=== PATIENT | male | born 1940 | race Caucasian/White ===

== ENCOUNTER 2023-09-21 13:24 | Inpatient (IN) | payer MEDICARE, MEDICAID, SELFPAY ==
[2023-09-21] VITALS (12 sets, daily range): BP systolic 96–128; BP diastolic 57–75; PULSE 59–70; RESP 12–20; TEMP 36.2–36.7; O2SAT 96–100; BMI 21.7
--- NOTE | ~2023-09-21 | CT_ITS ---
EXAMINATION: CT brain wo con DATE: 09/21/2023 15:14 INDICATION: Altered mental status. TECHNIQUE: Computed tomography (CT) of the head was performed without intravenous contrast. The mA wa s adjusted according to patient size. Iterative reconstruction technique was employed. The dose-lengt h product was 681.00 mGy-cm. COMPARISON: None FINDINGS: There is an old infarct in right frontal lobe. There is no intracranial hemorrhage, acute i nfarction, or abnormal intracranial mass lesion. There are scattered areas of low attenuation in the cerebral white matter. The ventricles are normal in size. There is mild mucosal thickening in the eth moid sinuses. There are changes of right mastoidectomy. There are likely changes of ocular lens repla cement surgeries. IMPRESSION: 1. 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 2. Extensive nonspecific cerebral white matter disease, which likely represents chronic small vessel ischemic disease. Reviewed, dictated and finalized at location A.
--- NOTE | ~2023-09-21 | CT_ITS ---
EXAMINATION:CT diagnostic chest w con DATE: 09/21/2023 17:23 INDICATION: Abnormal chest radiographs. TECHNIQUE: Computed tomography (CT) of the chest was performed with 75 mL Omnipaque 350 intravenous c ontrast. Automated exposure control and iterative reconstruction technique were employed. The dose-le ngth product (DLP) was 268.86 mGy-cm. COMPARISON: Chest 2 views 09/21/2023 FINDINGS: There is mild emphysema. There are airspace opacities and tree-in-bud opacities and centril obular nodules in right lower lobe, consistent with pneumonia. There is mild atelectasis bilaterally. There is mild right hilar lymphadenopathy, likely reactive. A calcified left lung nodule and calcifi ed left hilar lymph nodes are consistent with old granulomatous disease. There is a 2.1 cm cavitary n odule in left upper lobe. There is mucous plugging in right lower lobe. No pleural effusion. The hear t size is normal. There are coronary artery calcifications. There is a small sliding hiatal hernia. T here is severe cervical spondylosis and moderate thoracic spondylosis. There are bridging endplate os teophytes at multiple levels in the spine, consistent with diffuse idiopathic skeletal hyperostosis ( DISH). IMPRESSION: 1. Right lower lobe pneumonia. 2. 2.1 cm cavitary nodule in left lung upper lobe suspicious for primary bronchogenic carcinoma. Nonc ontrast low-dose chest CT is recommended in 1-3 months. 3. Mild emphysema. Reviewed, dictated and finalized at location A. IMPRESSION: 1. Right lower lobe pneumonia. 2. 2.1 cm cavitary nodule in left lung upper lobe suspicious for primary bronch ogenic carcinoma. Noncontrast low-dose chest CT is recommended in 1-3 months. 3. Mild emphysema.
--- NOTE | ~2023-09-21 | XR_ITS ---
Clinical Indication: Weakness PA and lateral views of the chest: Comparison: None Findings: There is mild bibasilar haziness/interstitial prominence.. Cardiomediastinal silhouette is within normal limits. Bones and soft tissues are unremarkable. Impression: Mild bibasilar haziness/interstitial prominence. Correlate for COPD/chronic interstitial change or po ssibly atypical infection or minimal pulmonary edema. Reviewed, dictated and finalized at location . Impression: Mild bibasilar haziness/interstitial prominence. Correlate for COPD/chronic int erstitial change or possibly atypical infection or minimal pulmonary edema.
--- NOTE | 2023-09-21 13:33 | ECG_ITS ---
[facility] [address] Test Date: 2023-09-21 Pat Name: Bruce Gonzalez Department: Room: Gender: M Veterans Contact Representative: KENDALL : 1940 Requested By: Ileana Orellana Order Number: [id number] Reading MD: Adolfo Barajas D.O. Measurements Intervals [place] Rate: 66 P: -55 [place]: 194 QRS: 57 QRSD: 94 T: 69 QT: 390 QTc: 409 Interpretive Statements SINUS RHYTHM NONSPECIFIC ST & T-WAVE ABNORMALITY- DIFFUSE LEADS BASELINE ARTIFACT- II, III, AVR, AVL, AVF, V1-V6 BORDERLINE ECG No previous ECG available for comparison Electronically Signed On 09-22-2023 08:53:14 CDT by Adolfo Barajas D.O.
[2023-09-21 13:47] LABS: Basophils Absolute Auto 0.1 K/mm3 (0.0-0.1); Basophils Percent Auto 0.9 % (0.2-1.2); Eosinophils Absolute Auto 0.1 K/mm3 (0-0.3); Eosinophils Percent Auto 1.2 % (0-4.4); Hematocrit 37.4 % (42.0-52.0); Hemoglobin 12.3 g/dL (14.0-18.0); Immature Granulocyte Absolute 0.01 K/mm3 (0.00-0.031); Immature Granulocyte Percent A 0.1 % (0-0.5); Lymphocytes Absolute Auto 1.69 K/mm3 (0.9-3.2); Lymphocytes Percent Auto 22.4 % (18.3-44.2); Mean Corpuscular HGB Conc 32.9 g/dl (32-36); Mean Corpuscular Hemoglobin 29.3 pg (26-34); Mean Platelet Volume 9.5 fl (7.4-10.4); Monocytes Absolute Auto 0.5 K/mm3 (0.1-0.6); Monocytes Percent Auto 6.8 % (2.6-8.5); Neutrophils Absolute Auto 5.2 K/mm3 (1.3-6.7); Neutrophils Percent Auto 68.6 % (45.5-73.1); Platelet Count Result 302 k/mm3 (150-375); White Blood Count 7.5 K/mm3 (4.5-10.0)
[2023-09-21 14:02] LABS: Alanine Aminotransferase 11 U/L (6-50); Albumin Level 4.1 g/dL (3.5-5.1); Alkaline Phosphatase 55 U/L (38-126); Anion Gap 10 mmol/L (4-12); Aspartate Amino Transferase 17 U/L (17-59); Bilirubin,Total 0.7 mg/dL (0.2-1.3); Blood Urea Nitrogen 19 mg/dL (9-20); Calcium 9.1 mg/dL (8.4-10.2); Carbon Dioxide 30 mmol/L (22-30); Chloride 103 mmol/L (98-107); Estimated CRCL calculation 63 ml/min; Estimated Glomerular Filt Rate > 60; Glucose 92 mg/dL (65-110); Potassium 3.4 mmol/L (3.4-5.0); Sodium 143 mmol/L (137-145)
--- NOTE | 2023-09-21 14:21 | ED.WEAKNESS ---
HPI - Weakness General Chief complaint: Weakness Stated complaint: lethargic Time Seen by Provider: 09/21/23 13:43 Source: family, EMS and RN notes reviewed Mode of arrival: EMS Limitations: altered mental status and dementia History of Present Illness HPI Narrative: Patient is an 83-year-old with dementia who presents with report of being more lethargic today. It is reported that at baseline he is alert and oriented x1 or 2. He had 2 episodes of staring off and drooling, being pale and diaphoretic. the 1st 8:30 a.m. and again at 11:30 a.m. Patient had his face in his meatloaf per report given to RN. daughter has noted that he has been progressively more sleepy. She states he has bilateral swelling of his hands on Tuesday but that this resolved. Per documentation, patient has a history of atrial fibrillation for which he is on Eliquis 5 mg b.i.d.. Also on quetiapine. Daughter states he gets Haldol at noon daily though is unsure if he got today's dose; unclear from senior care documentation. Patient to be placed in senior care due to behavioral outbursts associated with patient's dementia. Related Data Allergies Allergy/AdvReac Type Severity Reaction Status Date / Time No Known Allergies Allergy Verified 09/21/23 14:59 PMFSH Past Medical History Medical History Altered mental status, unspecified Alzheimer's disease, unspecified Anxiety disorder, unspecified Atelectasis Cerebral atherosclerosis Chronic atrial fibrillation, unspecified Dysphagia, unspecified Essential (primary) hypertension Hallucinations, unspecified Hypothyroidism Muscle weakness (generalized) Nutritional deficiency, unspecified Type 2 diabetes mellitus without complication Unspecified dementia, moderate, with agitation Vitamin D deficiency Social History Social History Social History: Code status No CPR, comfort-focused treatment per documentation from [place] (signed 07/18/23) Living arrangements: senior care Additional living arrangements comments: [facility] since 06/08/23 after hospitalization at [facility] 05/27/23-06/08/23 Occupation/Education: retired Additional occupation/education comments: Worked on the [employer] Exam Narrative: GENERAL: well-nourished, and in no acute distress. HEAD: Normocephalic, atraumatic. EYES: Non injected, non icteric ENT: Nares clear, no rhinorrhea or epistaxis. Dentures in place. NECK: Supple. CHEST: No respiratory distress. Non labored breathing. HEART: Regular rate and rhythm. Protecting airway. ABDOMEN: Soft, nondistended. No tenderness to palpation. Abdomen is without rigidity or guarding, not peritoneal EXTREMITIES: Normal range of motion. No bilateral lower extremity edema. Legs are shiny and hairless. SKIN: Warm, dry, no rash. NEURO: Lethargic, somnolent. PSYCH: Does not appear in distress or pain (no furrowed brow, no grimace) Course Vital Signs Vital signs: Vital Signs Temperature 97.1 F L 09/21/23 13:23 Pulse Rate 68 09/21/23 13:23 Respiratory Rate 17 09/21/23 13:23 Blood Pressure 116/62 09/21/23 13:23 Pulse Oximetry 98 09/21/23 13:23 Oxygen Delivery Room Air 09/21/23 13:23 Temperature 98.0 F 09/21/23 18:15 Pulse Rate 66 09/21/23 19:00 Respiratory Rate 12 09/21/23 19:00 Blood Pressure 122/73 09/21/23 19:00 Pulse Oximetry 100 09/21/23 19:00 Oxygen Delivery Room Air 09/21/23 13:23 MDM - Weakness MDM Narrative Medical decision making narrative: Patient is a 83yo male with dementia complicated by behavioral outbursts who is reported to be alert oriented x1 or 2 at baseline. Is reported that patient has been or some and lethargic with 2 episodes today of staring off and being diaphoretic and pale. In the emergency department they are afebrile with vital signs within normal limi
[2023-09-21 14:47] LABS: Appearance Urine Clear (Clear); Bacteria Urine None Seen /hpf; Bilirubin Urine Negative (Negative); Blood Urine Negative (Negative); Color Urine Dark Yellow (Yellow); Glucose Urine UA Negative (Negative); Ketones Urine Trace mg/dL (Negative); Leukocyte Esterase Ur Negative LEU/UL (Negative); Need Manual Microscopic Reviewed; Nitrate Urine Negative (Negative); Non Pathogenic Casts 0-2; Protein Urine Trace mg/dL (Negative); RBC Urine 0-2 /hpf (0-2); Specific Grav Ur 1.031 (1.001-1.035); Squamous Epithelial Cell Urine None Seen /hpf (Few); WBC Urine 0-5 /hpf (0-3); pH Urine 5.5 (5.0-9.0)
[2023-09-21 14:48] LABS: Add Urine Microscopic? YES; Calcium Oxalate Crystals Urine Present /hpf
[2023-09-21] MEDS: SODIUM CHLORIDE 0.9% IV 1,000 ML 999 ML IV CONT (14:49)
[2023-09-21 15:20] LABS: Acetaminophen < 10 ug/mL (10-30); Ethanol < 10 mg/dL (<10); Lactic Acid Reflex 1.9 mmol/L (0.7-2.0); Salicylate < 1.0 mg/dL (2-20)
[2023-09-21 15:33] LABS: Troponin I < 0.012 ng/mL (0.000-0.034)
[2023-09-21 15:33] LABS: Amphetamine Screen Urine Negative (Negative); Barbiturate Screen Urine Negative (Negative); Benzodiazepines Screen Urine Negative (Negative); Cannabinoid Screen Urine Negative (Negative); Cocaine Screen Urine Negative (Negative); Methadone Screen Urine Negative (Negative); Opiate Screen Urine Negative (Negative); Phencyclidine Screen Urine Negative (Negative)
[2023-09-21 15:57] LABS: Creatine Kinase 86 U/L (55-170)
[2023-09-21 16:07] LABS: NT Pro B Type Natriuretic Pept 246 pg/mL (19.9-100)
[2023-09-21 16:21] LABS: Alveolar/Arterial O2 Gradient 34.6 mmHg; Fractional Inspired Oxygen 21 %; Oxygen Content ABG 16.5 %vol (16.0-22.0); Oxygen Saturation ABG 94.7 % (95.0-100.0); Oxyhemoglobin 94.5 % THb (90.0-100.0); PCO2 ABG 37.6 mmHg (35.0-45.0); PO2 ABG 70.1 mmHg (80.0-100.0); PO2 FiO2 Ratio Arterial Blood 3.34 %; Total Hemoglobin 12.4 g/dL (12.0-18.0); pH ABG 7.441 (7.350-7.450)
[2023-09-21 16:22] LABS: Device ROOM AIR; Modified Allen's Test Pass; Site Drawn RIGHT RADIAL
[2023-09-21 16:27] LABS: Free T4 Free Thyroxine 1.22 ng/mL (0.78-2.19)
--- NOTE | 2023-09-21 17:14 | PC.NURSE ---
Pt to CT scan via stretcher at this time.
[2023-09-21 18:25] LABS: Influenza A QL RT-PCR Negative (Negative); Influenza B QL RT-PCR Negative (Negative); RSV RNA, RT-PCR Negative (Negative); SARS-CoV-2 RNA PCR Negative (Negative)
[2023-09-21] MEDS: DOXYCYCLINE 100 MG/NS 100 ML 100 MG/100 ML BAG IVPB (18:38)
--- NOTE | 2023-09-21 23:41 | PM.IMHP ---
H&P: HPI History of Present Illness Date/Time: 09/21/23 19:15 Chief Complaint: Lethargy. Narrative: This is an 83-year-old gentleman with Alzheimer's dementia with history of behavioral disturbances, hypertension, type 2 diabetes mellitus, hypothyroidism, paroxysmal atrial fibrillation, history of deep venous thrombosis and pulmonary embolism, and chronic anticoagulation who presented to the emergency department via EMS from [facility] for evaluation of lethargy. The patient has never been seen at this facility and he is unable to provide any meaningful history. His daughter Rosa is at bedside and provides the following history. The patient was diagnosed with dementia several years ago and he lived with Rosa up until May when she began having difficulties caring for him due to behavioral disturbances. Since he has been admitted to the [facility] he has gone downhill quickly and it sounds as though he is sedated a majority of the time. He is no longer holding good conversation and does not feet or toilet himself. His weight continues to fall. Today Rosa received a phone call that he was being sent to the ED as he was lethargic at lunch and had 2 episodes where he ?was staring off and drooling.? She has not been told of any recent illnesses or sick contacts. In the ED: He was afebrile on arrival with stable vital signs. CMP and CBC were reviewed and pretty unremarkable. TSH was 15.200 there was free T4 was normal at 1.22. Urinalysis was unremarkable. Urine drug screen was negative. Salicylate, acetaminophen, and ethyl alcohol levels were undetectable. He tested negative for influenza, RSV, and COVID. 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 Chest CT showed a 2.1 cm cavitary nodule in the left upper lobe suspicious for primary bronchogenic carcinoma, mild emphysema, and right lower lobe pneumonia. He was started on ceftriaxone and doxycycline and is being admitted in this setting. Review of Systems Review of Systems: Unable to obtain given clinical condition. [facility] Past Medical History Medical History (Updated 09/21/23 @ 23:47 by Daksha Ramos PA-C) Alzheimer's disease, unspecified Anxiety disorder, unspecified Cerebral atherosclerosis Chronic anticoagulation Dementia with behavioral disturbance Dysphagia, unspecified Essential (primary) hypertension Hallucinations, unspecified Hypothyroidism Muscle weakness (generalized) Nutritional deficiency, unspecified Paroxysmal atrial fibrillation Type 2 diabetes mellitus without complication Vitamin D deficiency Surgical History Surgical History (Updated 09/21/23 @ 23:47 by Daksha Ramos PA-C) Surgical history unknown Family History Family History (Updated 09/21/23 @ 23:48 by Daksha Ramos PA-C) Other Family history unknown Social History Social History (Updated 09/21/23 @ 23:48 by Daksha Ramos PA-C) Social History: Healthcare power of business attorney: Elis Garnett, daughter. Code status: No CPR, comfort-focused treatment per documentation from [place] (signed 07/18/23). Smoking status: Former smoker Alcohol intake: former Substance use: never Living arrangements: fdc Additional living arrangements comments: . [facility] since 06/08/23 after hospitalization at [facility]. Occupation/Education: retired Additional occupation/education comments: Worked on the [email or web address]. Spiritual care concerns: No Meds Home Medications and Allergies Home Medications Medication Instructions Recorded Confirmed Type amlodipine 10 mg tablet 10 mg PO DAILY 09/21/23 09/21/23 History apixaban 5 mg tablet (Eliquis) 5 mg PO DAILY 09/21/23 09/21/23 History aspirin 81 mg tablet 81 mg PO DAILY 09/21/23 09/21/23 History cholecalciferol (vitamin D3) 1,250 50,000 unit PO WEEKLY 09/21/23 09/21/23 History mcg (50,000 unit) capsule levothyroxine 125
[2023-09-22 06:00] VITALS: BP 140/70; PULSE 56; RESP 18; TEMP 36.6; O2SAT 97
[2023-09-22] MEDS: LEVOTHYROXINE SODIUM 125 MCG TABLET PO (06:23)
--- NOTE | 2023-09-22 06:58 | PM.IMPN ---
Progress Note: A&P Assessment and Plan (1) Right lower lobe pneumonia: Qualifiers: Pneumonia type: due to unspecified organism Qualified Code(s): J18.9 - Pneumonia, unspecified organism Code(s): J18.9 - Pneumonia, unspecified organism Status: Acute Assessment and Plan: Chest CT showing right lower lobe pneumonia, 2.1 cm cavitary nodule in left lung upper lobe suspicious for primary bronchogenic carcinoma, and mild emphysema. White count 7.5, afebrile Receiving Rocephin and doxycycline Urine Legionella, pneumococcal, and mycoplasma IgM ordered Encourage Turn, cough, deep breathe. Patient likely would not be able to use incentive spirometer. Family is aware of suspicious lung cancer and would like hospice consult (2) Left upper lobe pulmonary nodule: Code(s): R91.1 - Solitary pulmonary nodule Status: Acute Assessment and Plan: Family declining workup. Can consider hospice consult it discharge. (3) Type 2 diabetes mellitus: Code(s): E11.9 - Type 2 diabetes mellitus without complications Status: Acute Assessment and Plan: Low dose sliding scale insulin A.c. HS Accu-Cheks hypoglycemia protocol (4) Dementia with behavioral disturbance: Code(s): F03.918 - Unspecified dementia, unspecified severity, with other behavioral disturbance Status: Acute Assessment and Plan: Holding Seroquel in setting of lethargy (5) Chronic anticoagulation: Code(s): Z79.01 - vermin exterminator (current) use of anticoagulants Status: Acute Assessment and Plan: On Eliquis for atrial fibrillation (6) Subclinical hypothyroidism: Code(s): E03.8 - Other specified hypothyroidism Status: Acute Assessment and Plan: TSH 15.200 T4 normal T3 pending Continue levothyroxine 125 mcg Plan Feeding: Regular diet with Ensure compact Analgesia: Tylenol Thromboembolic prophylaxis: Eliquis Ulcer prophylaxis: na Glycemic control: Low-dose sliding scale, Accu-Cheks, hypoglycemia protocol Bowel regimen: MiraLax p.r.n. Lines: piv Antibiotics: Rocephin and doxy Disposition: Hospice home versus hospice at [facility] Subjective Date/time seen: 09/22/23 06:58 Interval history: This is an 83-year-old gentleman with Alzheimer's dementia with history of behavioral disturbances, hypertension, type 2 diabetes mellitus, hypothyroidism, paroxysmal atrial fibrillation, history of deep venous thrombosis and pulmonary embolism, and chronic anticoagulation who presented to the emergency department via EMS from [facility] for evaluation of lethargy. 09/21: Patient is resting in bed with his daughter at the bedside. She is feeding him lunch. I discussed with her results for speech therapy a recommendations surrounding barium swallow. Given the plan for hospice consult, will forego barium swallow and allow patient to eat pureed and thicken liquids. Patient denies complaints during my assessment. Plan for hospice consult today. Review of Systems Review of Systems: Unable to obtain given clinical condition. ROS unobtainable: Yes unobtainable due to mental status Exam Narrative: General: thin, frail, appears stated age. HEENT: normocephalic, atraumatic. Mucous membranes moist. EOMI, PERRLA, bilateral sclera anicteric, no conjunctival injection. Neck supple without JVD, lymphadenopathy, or bruit. [facility]. Respiratory: clear to auscultation with diminished bases bilaterally. No rales/rhonic/wheezes. Cardiovascular: Regular rate and rhythm, normal S1-S2 upon auscultation. No murmurs, rubs, or clicks. PMI is nondisplaced, capillary refill less than 3 second. Abdomen: Soft, round, no pulsatile masses, nondistended and nontender. No rebound, no guarding. No CVA tenderness, no hepatosplenomegaly. Bowel sounds present to all four quadrants. No high pitch or tinkling sounds, resonant to percussion. Extremities: No cyanosis, clubbing, or edema present.
[2023-09-22 07:55] VITALS: O2SAT 96
[2023-09-22 08:08] LABS: Glucose Point of Care 97 mg/dl (65-105)
[2023-09-22] MEDS: amLODIPine BESYLATE 5 MG TABLET 10 MG PO (09:29)
[2023-09-22] MEDS: DOXYCYCLINE HYCLATE 100 MG TABLET PO ×2 (09:29→20:30)
[2023-09-22] MEDS: APIXABAN 5 MG TABLET PO ×2 (09:29→20:30)
[2023-09-22] MEDS: ASPIRIN 81 MG CHEWABLE TABLET PO (09:29)
[2023-09-22 12:03] LABS: Glucose Point of Care 116 mg/dl (65-105)
[2023-09-22 14:07] VITALS: BP 111/67; PULSE 60; RESP 17; TEMP 36.8; O2SAT 97
[2023-09-22 16:57] LABS: Glucose Point of Care 108 mg/dl (65-105)
[2023-09-22 20:28] VITALS: BP 100/63; PULSE 67; RESP 17; TEMP 36.3; O2SAT 97
[2023-09-22] MEDS: QUEtiapine FUMARATE 25 MG TABLET 75 MG PO (20:29)
[2023-09-22 21:08] LABS: Glucose Point of Care 152 mg/dl (65-105)
[2023-09-23] MEDS: LEVOTHYROXINE SODIUM 125 MCG TABLET PO (04:58)
[2023-09-23 05:00] VITALS: BP 125/68; PULSE 57; RESP 17; TEMP 36.4; O2SAT 97
[2023-09-23 05:24] LABS: Basophils Absolute Auto 0.1 K/mm3 (0.0-0.1); Basophils Percent Auto 1.5 % (0.2-1.2); Eosinophils Absolute Auto 0.2 K/mm3 (0-0.3); Eosinophils Percent Auto 4.1 % (0-4.4); Hematocrit 36.9 % (42.0-52.0); Immature Granulocyte Absolute 0.01 K/mm3 (0.00-0.031); Immature Granulocyte Percent A 0.2 % (0-0.5); Lymphocytes Absolute Auto 1.92 K/mm3 (0.9-3.2); Lymphocytes Percent Auto 35.5 % (18.3-44.2); Mean Corpuscular HGB Conc 32.5 g/dl (32-36); Mean Corpuscular Hemoglobin 29.1 pg (26-34); Mean Corpuscular Volume 89.6 fl (80-100); Mean Platelet Volume 9.8 fl (7.4-10.4); Monocytes Absolute Auto 0.4 K/mm3 (0.1-0.6); Neutrophils Absolute Auto 2.8 K/mm3 (1.3-6.7); Neutrophils Percent Auto 51.7 % (45.5-73.1); Platelet Count Result 288 k/mm3 (150-375); Red Blood Count 4.12 M/mm3 (4.6-6.20); Red Cell Distribution Width 14.8 % (11.5-14.5); White Blood Count 5.4 K/mm3 (4.5-10.0)
[2023-09-23 06:03] LABS: Alanine Aminotransferase 9 U/L (6-50); Albumin Level 3.4 g/dL (3.5-5.1); Alkaline Phosphatase 56 U/L (38-126); Anion Gap 6 mmol/L (4-12); Aspartate Amino Transferase 17 U/L (17-59); Bilirubin,Total 0.6 mg/dL (0.2-1.3); Blood Urea Nitrogen 9 mg/dL (9-20); Carbon Dioxide 28 mmol/L (22-30); Chloride 106 mmol/L (98-107); Estimated CRCL calculation 63 ml/min; Estimated Glomerular Filt Rate > 60; Glucose 111 mg/dL (65-110); Magnesium 1.8 mg/dL (1.6-2.3); Potassium 3.7 mmol/L (3.4-5.0); Sodium 140 mmol/L (137-145)
--- NOTE | 2023-09-23 07:01 | PM.DS ---
DS: Admitting Diagnosis Discharge Date 09/23/23 Admitting Diagnosis lethargy DS: Discharge Diagnosis Discharge Diagnosis (1) Right lower lobe pneumonia: Qualifiers: Pneumonia type: due to unspecified organism Qualified Code(s): J18.9 - Pneumonia, unspecified organism Code(s): J18.9 - Pneumonia, unspecified organism Status: Acute Assessment and Plan: Chest CT showing right lower lobe pneumonia, 2.1 cm cavitary nodule in left lung upper lobe suspicious for primary bronchogenic carcinoma, and mild emphysema. White count 7.5, afebrile Receiving Rocephin and doxycycline Urine Legionella, pneumococcal, and mycoplasma IgM ordered Encourage Turn, cough, deep breathe. Patient likely would not be able to use incentive spirometer. Family is aware of suspicious lung cancer and would like hospice consult (2) Left upper lobe pulmonary nodule: Code(s): R91.1 - Solitary pulmonary nodule Status: Acute Assessment and Plan: Family declining workup. Can consider hospice consult it discharge. (3) Type 2 diabetes mellitus: Code(s): E11.9 - Type 2 diabetes mellitus without complications Status: Acute Assessment and Plan: Low dose sliding scale insulin A.c. HS Accu-Cheks hypoglycemia protocol (4) Dementia with behavioral disturbance: Code(s): F03.918 - Unspecified dementia, unspecified severity, with other behavioral disturbance Status: Acute Assessment and Plan: Holding Seroquel in setting of lethargy (5) Chronic anticoagulation: Code(s): Z79.01 - oil heaterman (current) use of anticoagulants Status: Acute Assessment and Plan: On Eliquis for atrial fibrillation (6) Subclinical hypothyroidism: Code(s): E03.8 - Other specified hypothyroidism Status: Acute Assessment and Plan: TSH 15.200 T4 normal T3 pending Continue levothyroxine 125 mcg Plan Feeding: Regular diet with Ensure compact Analgesia: Tylenol Thromboembolic prophylaxis: Eliquis Ulcer prophylaxis: na Glycemic control: Low-dose sliding scale, Accu-Cheks, hypoglycemia protocol Bowel regimen: MiraLax p.r.n. Lines: piv Antibiotics: Rocephin and doxy Disposition: Hospice home versus hospice at SNF DS: Summary Hospital Course Reason for hospitalization: Community-acquired pneumonia Hospital Course: This is an 83-year-old gentleman with Alzheimer's dementia with history of behavioral disturbances, hypertension, type 2 diabetes mellitus, hypothyroidism, paroxysmal atrial fibrillation, history of deep venous thrombosis and pulmonary embolism, and chronic anticoagulation who presented to the emergency department via EMS from [facility] for evaluation of lethargy. The patient has never been seen at this facility and he is unable to provide any meaningful history. His daughter Rosa is at bedside and provides the following history. The patient was diagnosed with dementia several years ago and he lived with Rosa up until May when she began having difficulties caring for him due to behavioral disturbances. Since he has been admitted to the half-way he has gone downhill quickly and it sounds as though he is sedated a majority of the time. He is no longer holding good conversation and does not feet or toilet himself. His weight continues to fall. Today Rosa received a phone call that he was being sent to the ED as he was lethargic at lunch and had 2 episodes where he ?was staring off and drooling.? She has not been told of any recent illnesses or sick contacts. In the ED: He was afebrile on arrival with stable vital signs. CMP and CBC were reviewed and pretty unremarkable. TSH was 15.200 there was free T4 was normal at 1.22. Urinalysis was unremarkable. Urine drug screen was negative. Salicylate, acetaminophen, and ethyl alcohol levels were undetectable. He tested negative for influenza, RSV, and COVID. Brain CT showed an old infarct in the right
[2023-09-23 08:20] LABS: Glucose Point of Care 111 mg/dl (65-105)
[2023-09-23 09:37] VITALS: BP 127/72; PULSE 55; RESP 14; O2SAT 97
[2023-09-23] MEDS: APIXABAN 5 MG TABLET PO (09:38)
[2023-09-23] MEDS: ASPIRIN 81 MG CHEWABLE TABLET PO (09:38)
[2023-09-23] MEDS: amLODIPine BESYLATE 5 MG TABLET 10 MG PO (09:38)
[2023-09-23] MEDS: DOXYCYCLINE HYCLATE 100 MG TABLET PO (09:38)
[2023-09-23] MEDS: QUEtiapine FUMARATE 25 MG TABLET PO (09:38)
[2023-09-23 12:05] LABS: Glucose Point of Care 157 mg/dl (65-105)
[2023-09-23 14:17] VITALS: BP 110/69; PULSE 73; RESP 17; TEMP 36.6; O2SAT 100
[2023-09-26 19:16] LABS: T3 Free 1.9
[2023-09-30 18:18] LABS: Mycoplasma IgM Antibody Titer 66 U/mL
== END 2023-09-23 16:00 | disposition hospice, home (50) | DRG 194 ==
LOC: ANHED 19:30 → ANH3MEDSUR 20:50 → ANH2MED 20:54
PROVIDERS: Admitting Provider General Practice; Emergency Provider Student in an Organized Health Care Education/Training Program; PCP Internal Medicine; Visit Provider Nurse Practitioner Acute Care
DX: J18.9 Pneumonia, unspecified organism (principal); C34.12 Malignant neoplasm of upper lobe, left bronchus or lung; I48.0 Paroxysmal atrial fibrillation; I10 Essential (primary) hypertension; I67.2 Cerebral atherosclerosis; E55.9 Vitamin D deficiency, unspecified; E03.9 Hypothyroidism, unspecified; E11.9 Type 2 diabetes mellitus without complications; R13.10 Dysphagia, unspecified; G30.9 Alzheimer's disease, unspecified; F02.80 Dementia in other diseases classified elsewhere, unspecified severity, without behavioral disturbance, psychotic disturbance, mood disturbance, and anxiety; F41.9 Anxiety disorder, unspecified; Z20.822 Contact with and (suspected) exposure to COVID-19; Z86.718 Personal history of other venous thrombosis and embolism; Z86.711 Personal history of pulmonary embolism; Z79.01 Long term (current) use of anticoagulants; Z51.5 Encounter for palliative care
CPT/HCPCS: 36415; 36600; 70450; 71046; 71260; 80053; 80307; 81001; 82550; 82805; 82948; 83605; 83735; 83880; 84439; 84443; 84480; 84484; 85025; 86738; 87637; 92610; 93005; 96365; 96367; 99285; A9270; G0378; J0696; J7030; Q9967